=== PATIENT | male | born 1955 | race Caucasian/White ===

== ENCOUNTER → 2021-06-17 11:32 | Outpatient (REF) | payer MEDICARE, OTHER, SELFPAY | LOC: ANHLAB 11:32 | PROVIDERS: Visit Provider Nurse Practitioner | DX: R22.9 Localized swelling, mass and lump, unspecified (principal); L72.0 Epidermal cyst; L90.5 Scar conditions and fibrosis of skin | CPT/HCPCS: 88304 ==

== ENCOUNTER 2022-01-28 10:24 | Outpatient (CLI) | payer MEDICARE, SELFPAY ==
--- NOTE | ~2022-01-28 | XR_ITS ---
EXAMINATION: XR foot LT standing 2V, XR foot RT standing 2V DATE: 01/28/2022 11:09 INDICATION: Rheumatoid arthritis without rheumatoid factor TECHNIQUE: 1. Weightbearing dorsal plantar and lateral views of the left foot were obtained. 2. Weightbearing dorsal plantar and lateral views of the right foot were obtained. COMPARISON: None. FINDINGS: Bilateral pes planus and hindfoot valgus. At the left foot there is widening of the space between the medial cuneiform and the base of the second metatarsal suggesting possible tear/insufficiency of the Lisfranc ligament complex. There is however no appreciable subluxation at the left tarsal metatarsal joints. No fractures identified at either foot. Mild polyarticular osteoarthritis throughout both fe et no erosions to suggest inflammatory arthritis. Small to moderate-sized bilateral plantar calcaneal spurs and tiny left Achilles calcaneal spur. Soft tissues are unremarkable. IMPRESSION: 1. Relatively symmetric pes planus, hindfoot valgus and mild polyarticular osteoarthritis at both fee t. 2. Asymmetric widening of the space between the medial cuneiform and base of the second metatarsal. L eft foot suggesting possible tear/insufficiency of the Lisfranc ligament. Reviewed, dictated and finalized at location A. IMPRESSION: 1. Relatively symmetric pes planus, hindfoot valgus and mild polyarticular oste oarthritis at both feet. 2. Asymmetric widening of the space between the medial cuneiform and base of th e second metatarsal. Left foot suggesting possible tear/insufficiency of the Li sfranc ligament.
--- NOTE | ~2022-01-28 | XR_ITS ---
EXAMINATION: HAND-JHONATHAN ARTHRITIS 3+VIEWS DATE: 01/28/2022 11:09 INDICATION: Rheumatoid arthritis without rheumatoid factor. TECHNIQUE: Posteroanterior, lateral, and oblique views of the left and of the right hands as well as a ballcatchers view of both hands were obtained. COMPARISON: None. FINDINGS: Bone alignment is normal at both hands. No fracture. Subtle chondrocalcinosis at the left triangular fibrocartilage complex. No erosions to suggest inflammatory arthritis. Likely symmetric polyarticular osteoarthritis at both hands characterized by nonuniform joint space narrowing and/or small marginal osteophytes. This is of moderate severity at the bilateral triscaphe joints as well as at the distal interphalangeal joints amount mild at the left distal radioulnar, bilateral radiocarpal, first carpo metacarpal and many of the remaining interphalangeal joints and minimal at a few of the remaining car pophalangeal joints. Periarticular soft tissue swelling at several of the bilateral interphalangeal j oints. IMPRESSION: 1. Mild to moderate polyarticular osteoarthritis at the bilateral hands and wrists. No erosions to singh ggest an inflammatory arthritis. Reviewed, dictated and finalized at location A. IMPRESSION: 1. Mild to moderate polyarticular osteoarthritis at the bilateral hands and wri sts. No erosions to suggest an inflammatory arthritis.
[2022-01-28 11:40] LABS: Basophils Absolute Auto 0.1 K/mm3 (0.0-0.1); Basophils Percent Auto 0.6 % (0.2-1.2); Eosinophils Absolute Auto 0.6 K/mm3 (0-0.3); Eosinophils Percent Auto 5.3 % (0-4.4); Hematocrit 45.9 % (42.0-52.0); Hemoglobin 13.5 g/dL (14.0-18.0); Immature Granulocyte Absolute 0.04 K/mm3 (0.00-0.031); Immature Granulocyte Percent A 0.4 % (0-0.5); Lymphocytes Absolute Auto 1.62 K/mm3 (0.9-3.2); Lymphocytes Percent Auto 15.2 % (18.3-44.2); Mean Corpuscular HGB Conc 29.4 g/dl (32-36); Mean Corpuscular Hemoglobin 24.2 pg (26-34); Mean Corpuscular Volume 82.3 fl (80-100); Monocytes Absolute Auto 0.9 K/mm3 (0.1-0.6); Monocytes Percent Auto 8.5 % (2.6-8.5); Neutrophils Absolute Auto 7.5 K/mm3 (1.3-6.7); Platelet Count Result 287 k/mm3 (150-375); Red Blood Count 5.58 M/mm3 (4.6-6.20); Red Cell Distribution Width 15.9 % (11.5-14.5); White Blood Count 10.6 K/mm3 (4.5-10.0)
[2022-01-28 11:45] LABS: Alanine Aminotransferase 55 U/L (6-50); Albumin Level 4.6 g/dL (3.5-5.1); Alkaline Phosphatase 95 U/L (38-126); Anion Gap 8 mmol/L (8-16); Aspartate Amino Transferase 43 U/L (17-59); Bilirubin,Total 0.4 mg/dL (0.2-1.3); Blood Urea Nitrogen 12 mg/dL (9-20); CRP 1.1 mg/dL (<1.0); Calcium 9.5 mg/dL (8.4-10.2); Carbon Dioxide 33 mmol/L (22-30); Chloride 98 mmol/L (98-107); Estimated Glomerular Filt Rate 51; Glucose 163 mg/dL (65-110); Potassium 4.5 mmol/L (3.4-5.0); Sodium 139 mmol/L (137-145)
[2022-01-28 12:14] LABS: Rheumatoid Factor < 8.6 IU/ML (<12)
[2022-01-28 13:25] LABS: Appearance Urine Clear (Clear); Bilirubin Urine Negative (Negative); Blood Urine Negative (Negative); Color Urine Yellow (Yellow); Glucose Urine UA Negative (Negative); Ketones Urine Negative (Negative); Leukocyte Esterase Ur Negative LEU/UL (Negative); Nitrate Urine Negative (Negative); Protein Urine Trace mg/dL (Negative); Specific Grav Ur >= 1.030 (1.001-1.035); Urobilinogen Urine 0.2 mg/dL (<2.0); pH Urine 5.5 (5.0-9.0)
[2022-01-28 13:39] LABS: Add Urine Microscopic? YES; Mucus Urine Rare /lpf; RBC Urine 0-2 /hpf (0-2); WBC Urine 0-3 /hpf
[2022-01-28 15:26] LABS: Erythrocyte Sedimentation Rate 1 mm/hr (0-20)
[2022-01-31 23:31] LABS: Anti Cyclic Citrullinated Pept <16 Units (<20)
[2022-02-04 19:29] LABS: SS-A <1.0; SS-B <1.0
[2022-02-04 20:40] LABS: SM Antibody <1.0; SM/RNP Antibody <1.0
[2022-02-05 21:01] LABS: ANCA Screen Negative (Negative); Myeloperoxidase Ab <1.0 AI (<1.0); Proteinase-3 Ab <1.0 AI (<1.0); S cerevisiae Ab (IgA) 17.6 U (<=20.0); S cerevisiae Ab (IgG) 17.9 U (<=20.0)
== END 2022-01-28 10:25 | disposition home or self-care (01) ==
LOC: ANHLAB 10:31
PROVIDERS: PCP Physician Assistant; Visit Provider Internal Medicine
DX: M06.09 Rheumatoid arthritis without rheumatoid factor, multiple sites (principal); M47.812 Spondylosis without myelopathy or radiculopathy, cervical region; M47.816 Spondylosis without myelopathy or radiculopathy, lumbar region; Z71.89 Other specified counseling; Z79.899 Other long term (current) drug therapy; M35.3 Polymyalgia rheumatica; M19.041 Primary osteoarthritis, right hand; M19.042 Primary osteoarthritis, left hand; M19.031 Primary osteoarthritis, right wrist; M19.032 Primary osteoarthritis, left wrist
CPT/HCPCS: 36415; 73130; 73620; 80053; 81001; 85025; 85652; 86036; 86038; 86140; 86200; 86225; 86235; 86430; 86671

== ENCOUNTER → 2022-06-21 13:33 | Outpatient (CLI) | payer MEDICARE, SELFPAY ==
--- NOTE | ~2022-06-21 | MR_ITS ---
MRI of the right foot Clinical History: Pain Technique: Sagittal T1-weighted and STIR images, axial T1-weighted and T2 fat-sat images, and coronal T1-weighted and T2 fat-sat images were performed through the forefoot. Following intravenous adminis tration of 16 cc MultiHance gadolinium, T1-weighted fat-sat imaging was performed in the axial, coron al, and sagittal planes. Findings: Bone marrow signals are unremarkable. No evidence for osteomyelitis. No fracture or bone ma rrow edema seen. There is minimal degenerative change at the first metatarsophalangeal joint. Remaini ng joint spaces appear unremarkable. No significant joint effusion identified. Flexor and extensor tendons appear intact. No evidence for definite Lester's neuroma or intermetatars al bursitis. Visualized musculature is essentially unremarkable. Visualized plantar fascia intact. No abnormal postcontrast enhancement. IMPRESSION: Minimal degenerative change first MTP joint. Reviewed, dictated and finalized at [facility]. ISTICAL TECHNICIAN
== END ==
PROVIDERS: PCP Physician Assistant; Visit Provider Internal Medicine
DX: M79.671 Pain in right foot (principal)
CPT/HCPCS: 73720; A9577

== ENCOUNTER → 2023-12-13 10:58 | Outpatient (CLI) | payer MEDICARE, SELFPAY ==
--- NOTE | ~2023-12-13 | XR_ITS ---
XR foot RT min 3V Ordering provider: Gregg Fabian, [place] History: . LOG DROPPED ON DORSAL FOOT, 1ST MTP JOINT PAIN . Comparison: January 28, 2022 FINDINGS: BONES: No acute fracture or dislocation. Calcaneus spur. JOINT SPACES: Proximal and distal interphalangeal joint osteoarthritic changes. SOFT TISSUES: Normal. IMPRESSION: No acute osseous abnormality of the right foot. Reviewed, dictated and finalized at location A.
== END ==
PROVIDERS: PCP Physician Assistant; Visit Provider Physician Assistant
DX: S90.31XA Contusion of right foot, initial encounter (principal); X58.XXXA Exposure to other specified factors, initial encounter
CPT/HCPCS: 73630